=== PATIENT | female | born 1990 ===

== ENCOUNTER 2022-04-28 05:39 | Day surgery (SDC) | payer OTHER ==
[~2022-04-28] VITALS: Ht 160 cm; Wt 77.1 kg
== END 2022-04-28 13:00 | disposition home or self-care (01) ==
LOC: CIR.AMB 05:39
PROVIDERS: ATTEND Specialist
DX: K43.6 Other and unspecified ventral hernia with obstruction, without gangrene (principal); Z20.822 Contact with and (suspected) exposure to COVID-19; E78.00 Pure hypercholesterolemia, unspecified; J45.909 Unspecified asthma, uncomplicated; Z86.16 Personal history of COVID-19; G43.909 Migraine, unspecified, not intractable, without status migrainosus; E66.9 Obesity, unspecified